=== PATIENT | male | born 1970 ===

== ENCOUNTER 2020-04-14 16:19 | Emergency (ER) | payer SELFPAY ==
[2020-04-14 16:55] VITALS: BP 151/81
--- NOTE | 2020-04-14 21:57 | Emergency Department Report ---
ED Psych HPI - General Chief Complaint: Psych Stated Complaint: MH Time Seen by Provider: 04/14/20 21:50 Source: patient Mode of arrival: Ambulatory Limitations: No Limitations - History of Present Illness Initial Comments: Patient is a 49-year-old male that presents emergency room for a mental health check. Patient states he is homeless and needs something to eat. Patient states that when he was triaged he said he want to kill himself because he needs a place to stay. Patient states he has no plan. Patient actually denies suicidal homicidal ideation. Patient states he just needs some food and somewhere to stay for the night since it is raining. Patient denies hallucinations. Patient complains of depression. Patient denies anxiety. Patient denies recent travel. Patient denies recent international travel. Patient denies exposure to the novel coronavirus. Patient denies sick contacts. Patient denies fever and chills. Patient denies cough. Patient denies diarrhea. Patient denies coming in contact with anybody with symptoms of the novel coronavirus. MD Complaint: other -: Sudden Associated Psychiatric Symptoms: depression History of same: Yes Quality: constant Improves With: none Worsens With: none Context: significant life stressor, other (Homelessness) Treatments Prior to Arrival: none - Related Data Allergies Allergy/AdvReac Type Severity Reaction Status Date / Time No Known Allergies Allergy Verified 04/14/20 16:50 ED Review of Systems ROS: Stated complaint: MH Other details as noted in HPI Constitutional: denies: chills, fever Eyes: denies: eye pain, eye discharge, vision change ENT: denies: ear pain, throat pain Respiratory: denies: cough, shortness of breath, wheezing Cardiovascular: denies: chest pain, palpitations Endocrine: no symptoms reported Gastrointestinal: denies: abdominal pain, nausea, diarrhea Genitourinary: denies: urgency, dysuria Musculoskeletal: denies: back pain, joint swelling, arthralgia Skin: denies: rash, lesions Neurological: denies: headache, weakness, paresthesias Psychiatric: depression. denies: anxiety, auditory hallucinations, visual hallucinations, homicidal thoughts, suicidal thoughts Hematological/Lymphatic: denies: easy bleeding, easy bruising ED Past Medical Hx - Past Medical History Previous Medical History?: Yes Hx Psychiatric Treatment: Yes (paranoid schizophrenia) - Surgical History Past Surgical History?: No - Family History Family history: no significant - Social History Smoking Status: Current Every Day Smoker Substance Use Type: None ED Physical Exam - General Limitations: No Limitations General appearance: alert, in no apparent distress - Head Head exam: Present: atraumatic, normocephalic - Eye Eye exam: Present: normal appearance - ENT ENT exam: Present: mucous membranes moist - Neck Neck exam: Present: normal inspection - Respiratory Respiratory exam: Present: normal lung sounds bilaterally. Absent: respiratory distress - Cardiovascular Cardiovascular Exam: Present: regular rate, normal rhythm. Absent: systolic murmur, diastolic murmur, rubs, gallop - GI/Abdominal GI/Abdominal exam: Present: soft, normal bowel sounds - Rectal Rectal exam: Present: deferred - Extremities Exam Extremities exam: Present: normal inspection - Back Exam Back exam: Present: normal inspection - Neurological Exam Neurological exam: Present: alert, oriented X3 - Psychiatric Psychiatric exam: Present: normal affect, normal mood. Absent: anxious, flat affect, homicidal ideation, suicidal ideation - Skin Skin exam: Present: warm, dry, intact, normal color. Absent: rash ED Course Vital Signs 04/14/20 04/14/20 16:53 20:53 Temperature 98.4 F Pulse Rate 116 H Respiratory 20 18 Rate Blood Pressure 151/81 O2 Sat by Pulse 95 98 Oximetry - Reevaluation(s) Reevaluation #1: Patient evaluated. Patient does not meet criteria for a 1013 or an ER hold. Patient does not require further psychiatric evaluation in the ER. Patient can be followed up as an outpatient. Patient did not have any active hallucinations or psychosis. Patient does not complain of suicidal homicidal ideation. Patient states he only said he had suicidal ideations with no plan because he needed a place to stay because raining outside and he is hungry. I discussed all clinical findings with patient. I discussed plan of care with patient. Patient agrees with plan of care. Patient is stable for discharge. Patient will be discharged home. Patient given discharge instructions. Patient voiced understanding of discharge instructions. 04/14/20 22:10 ED Medical Decision Making - Medical Decision Making Patient is a 49-year-old male that presents emergency room with complaints of pain homeless and being hungry. Patient stated in triage that he had suicidal ideation with no plan. After further discussion with the patient, the patient states that he does not have suicidal patient but rather just needs a place that gets raining outside and is hungry. Patient is not require any further emergency medical services. Patient does not require or meet criteria for a 1013 or an ER hold for psychiatric conditions. Patient is medically cleared. Patient had a medical clearing exam. Patient not require further emergency medical services. Patient stable for discharge. Patient discharged home. - Differential Diagnosis Homelessness, malingering Critical care attestation.: If time is entered above; I have spent that time in minutes in the direct care of this critically ill patient, excluding procedure time. ED Disposition Clinical Impression: Malingering, Homelessness Depression Qualifiers: Depression Type: unspecified Qualified Code(s): F32.9 - Major depressive disorder, single episode, unspecified Disposition: DC- TO HOME OR SELFCARE Is pt being admited?: No Does the pt Need Aspirin: No Condition: Stable Instructions: Depression (ED), Suicide Prevention for Adults (ED) Additional Instructions: Patient to follow-up with primary care in 2 to 3 days. Patient to follow-up with mental health, [facility], local psychiatric facility in 2 to 3 days. Patient to rest. Patient to increase water. Patient to return to the ER if condition worsens, changes or new symptoms arise. Referrals: PRIMARY CARE, [Primary Care Provider] - 2-3 Days Time of Disposition: 22:13
== END 2020-04-14 22:35 | disposition home or self-care (01) ==
LOC: ED 16:19
DX: F32.9 Major depressive disorder, single episode, unspecified (principal); Z59.0 Homelessness; Z76.5 Malingerer [conscious simulation]; F20.0 Paranoid schizophrenia; Z79.899 Other long term (current) drug therapy
CPT/HCPCS: 99283

== ENCOUNTER 2020-04-15 23:55 | Emergency (ER) | payer SELFPAY | END 2020-04-16 02:00 | disposition left against medical advice (07) | LOC: ED 23:55 | DX: R41.82 Altered mental status, unspecified (principal); Z53.21 Procedure and treatment not carried out due to patient leaving prior to being seen by health care provider ==